=== PATIENT | female | born 1985 | race Caucasian/White ===

== ENCOUNTER 2018-09-05 05:19 | Day surgery (SDC) | payer MEDICAID ==
[2018-09-05] MEDS: LACTATED RINGER'S 1,000 ML (ENTER RATE) IV (06:18)
[2018-09-05] MEDS ORDERED: CLINDAMYCIN 900 MG INJ IVPB (06:30)
[2018-09-05] MEDS ORDERED: CLINDAMYCIN 900 MG/D5W (PMX) 50 ML IVPB ×2 (06:30→07:02)
[2018-09-05] MEDS ORDERED: CEFAZOLIN 2 GM/50 ML (PMX) 50 ML IVPB (07:00)
[2018-09-05] MEDS ORDERED: DESFLURANE 15 MIN (07:00)
[2018-09-05] MEDS ORDERED: ROCURONIUM 50 MG INJ (07:02)
[2018-09-05] MEDS ORDERED: LIDOCAINE 2% (SDV) 5 ML INJ (07:02)
[2018-09-05] MEDS ORDERED: PROPOFOL 20 ML (07:02)
[2018-09-05] MEDS ORDERED: FENTAnyl 50 MCG/ML VIAL (07:03)
[2018-09-05] MEDS ORDERED: MIDAZOLAM 1 MG/ML 2 ML INJ (07:03)
[2018-09-05] MEDS ORDERED: ONDANSETRON 4 MG INJ (07:50)
[2018-09-05] MEDS ORDERED: DEXAMETHASONE 4 MG/ML 5 ML INJ (07:50)
[2018-09-05] MEDS ORDERED: FAMOTIDINE 20 MG INJ (07:50)
[2018-09-05] MEDS ORDERED: METOCLOPRAMIDE 10 MG INJ (07:50)
[2018-09-05] MEDS ORDERED: LABETALOL HCL 20MG INJ IV (08:00)
[2018-09-05] MEDS ORDERED: OXYCODONE/ACETAMINOPHEN (5/325) TAB PO (08:00)
[2018-09-05] MEDS ORDERED: HYDROmorphONE 1 MG/5 ML IV SYRINGE IV ×3 (08:00)
[2018-09-05] MEDS: BUPIVACAINE 0.5%/EPI (SDV) 30 ML INJ (08:14)
[2018-09-05] MEDS ORDERED: NEOSTIGMINE 3 MG/3 ML SYRINGE (08:21)
[2018-09-05] MEDS ORDERED: GLYCOPYRROLATE 0.4 MG INJ (08:21)
[2018-09-05] MEDS: MEPERIDINE 25 MG INJ IV (09:06)
[2018-09-05] MEDS: OXYCODONE/ACETAMINOPHEN (5/325) TAB PO (10:26)
== END 2018-09-05 11:15 | disposition home or self-care (01) ==
LOC: SDS 05:19
DX: Z30.2 Encounter for sterilization (principal)
CPT/HCPCS: 58661; 88302